=== PATIENT | male | born 1960 | race Caucasian/White ===

== ENCOUNTER 2021-07-19 13:39 | Emergency (ER) | payer SELFPAY ==
[2021-07-19 13:48] VITALS: BP 150/93; PULSE 75; RESP 16; TEMP 36.7; O2SAT 99
--- NOTE | 2021-07-19 15:24 | ED.DENTAL ---
HPI - Dental/Oral General Chief complaint: Dental/Oral <Lela De La Garza PA-C - Last Filed: 07/19/21 15:28> Stated complaint: L ear and neck pain <LUCIA Galindo Last Filed: 07/19/21 15:28> Time Seen by Provider: 07/19/21 14:18 <Lela De La Garza PA-C - Last Filed: 07/19/21 15:28> Source: patient <LUCIA Galindo Last Filed: 07/19/21 15:28> Mode of arrival: ambulatory <LUCIA Galindo Last Filed: 07/19/21 15:28> Limitations: no limitations <LUCIA Galindo Last Filed: 07/19/21 15:28> History of Present Illness HPI Narrative: This is a 60-year-old male that presents to the emergency department for dentalgia. Reports this has been ongoing for weeks. Worsened today. He has been taking [id number] Tylenol and anti-inflammatories with some relief. Reports he felt a swollen gland in the area and had worsening pain today which prompted him to be seen. Denies fever, chest pain, shortness of breath. <Lela De La Garza PA-C - Last Filed: 07/19/21 15:28> MD Complaint: tooth pain <LUCIA Galindo Last Filed: 07/19/21 15:28> Location: Tooth # (18) <LUCIA Galindo Last Filed: 07/19/21 15:28> Related Data Allergies/adverse reactions: Allergies Allergy/AdvReac Type Severity Reaction Status Date / Time No Known Allergies Allergy Verified 07/19/21 14:21 <LUCIA Galindo Last Filed: 07/19/21 15:28> Review of Systems Review of Systems: CONSTITUTIONAL: Denies fever ENT: Reports dentalgia CARDIOVASCULAR: Denies chest pain RESPIRATORY: Denies dyspnea. <LUCIA Galindo Last Filed: 07/19/21 15:28> All systems reviewed & are unremarkable except as noted in HPI and below <Lela De La Garza PA-C - Last Filed: 07/19/21 15:28> [facility] Past Medical History Medical History: Medical History (Updated 07/19/21 @ 15:28 by Lela De La Garza PA-C) History of hyperlipidemia History of hypertension <Lela De La Garza PA-C - Last Filed: 07/19/21 15:28> Social History Social History: Social History (Updated 07/19/21 @ 15:26 by Lela De La Garza PA-C) Smoking status: Current every day smoker <Lela De La Garza PA-C - Last Filed: 07/19/21 15:28> Exam Narrative: GENERAL: Well-appearing, well-nourished, and in no acute distress. HEAD: Normocephalic, atraumatic. EYES: EOMI. ENT: Nares clear, no rhinorrhea or epistaxis. Mucous membranes moist. Oropharynx without tonsillar hypertrophy exudate or other lesions. Tooth #18 tender to palpation, no surrounding erythema or edema to suggest abscess NECK: Supple. No adenopathy or masses. CHEST: Clear to auscultation. No respiratory distress. No wheezes rales or rhonchi HEART: Regular rate and rhythm. No murmur heard. Normal peripheral pulses. EXTREMITIES: Normal range of motion. No edema. SKIN: Warm, dry, no rash. NEURO: No focal deficits. Alert and oriented x3. PSYCH: Normal mood and affect <Lela De La Garza PA-C - Last Filed: 07/19/21 15:28> Course CLEAN ROOM ASSEMBLER/PA Physician Supervision For this patient encounter, I reviewed the CLEAN ROOM ASSEMBLER or PA documentation, treatment plan, and medical decision making <Ivan Roldan MD - Last Filed: 07/19/21 15:52> Vital Signs Vital signs: Vital Signs Temperature 98.0 F 07/19/21 13:48 Pulse Rate 75 07/19/21 13:48 Respiratory Rate 16 07/19/21 13:48 Blood Pressure 150/93 H 07/19/21 13:48 Pulse Oximetry 99 07/19/21 13:48 Temperature 98.0 F 07/19/21 13:48 Pulse Rate 71 07/19/21 15:39 Respiratory Rate 14 07/19/21 15:39 Blood Pressure 144/91 H 07/19/21 15:39 Pulse Oximetry 100 07/19/21 15:39 <Lela De La Garza PA-C - Last Filed: 07/19/21 15:28> Vital Signs Temperature 98.0 F 07/19/21 13:48 Pulse Rate 75 07/19/21 13:48 Respiratory Rate 16 07/19/21 13:48 Blood Pressure 150/93 H 07/19/21 13:48 Pulse Oximetry 99 07/19/21 13:48 Temperature 98.0 F 07/19/21 13:48
[2021-07-19 15:39] VITALS: BP 144/91; PULSE 71; RESP 14; O2SAT 100
== END 2021-07-19 15:40 | disposition home or self-care (01) ==
PROVIDERS: Emergency Provider Emergency Medicine
DX: K08.89 Other specified disorders of teeth and supporting structures (principal); E78.5 Hyperlipidemia, unspecified; I10 Essential (primary) hypertension; F17.200 Nicotine dependence, unspecified, uncomplicated
CPT/HCPCS: 99283